=== PATIENT | male | born 1975 | race Caucasian/White ===

== ENCOUNTER 2024-07-06 09:43 | Outpatient (REF) | payer MEDICAID, SELFPAY ==
[2024-07-06 12:05] LABS: Anion Gap 12 (12-20); Blood Urea Nitrogen 14 mg/dL (9-16); Calcium 9.8 mg/dL (8.4-10.2); Carbon Dioxide 26 mmol/L (22-29); Chloride 107 mmol/L (96-108); Estimated Glomerular Filt Rate > 60; Glucose Random 108 mg/dL (60-115); Potassium 4.7 mmol/L (3.3-5.1); Sodium 140 mmol/L (135-145)
== END 2024-07-06 09:44 | disposition home or self-care (01) ==
LOC: HO.HHCL 09:43
PROVIDERS: Visit Provider Internal Medicine Geriatric Medicine
DX: I10 Essential (primary) hypertension (principal)
CPT/HCPCS: 36415; 80048

== ENCOUNTER 2025-06-11 10:15 | Outpatient (REF) | payer MEDICAID, SELFPAY ==
--- OUTSIDE RECORDS SUMMARY | 2025-06-11 11:18 | XMS_ITS | Clinical Summary ---
Author Organization [employer] Address [address] [facility] [address] [place] [address] Care Team Providers Care Stoner Hand Name Role Phone NameCortez MD Primary Care Provider [phone] Allergies No known active allergies Medications lisinopril 10 MG tabletIndications :Essential hypertension TAKE 1 TABLET BY MOUTH EVERY DAY 90 tablet 01/08/2025 Active Blood Pressure kit Use once a day 1 kit 06/07/2025 Active Active Problems Problem Noted Date Diagnosed Date Essential hypertension 02/28/2024 Elevated blood pressure reading 07/07/2018 Encounters Date Type Department Care Team Description 06/07/2025 10:30 AM EDT Office Visit [facility] [address] [place] [phone] Cortez Styles MD PE (physical exam), routine (Primary Dx); Screening for diabetes mellitus; Screening for cholesterol level; Screening for prostate cancer; Family history of thyroid problem; Encounter for screening for malignant neoplasm of colon; Essential hypertension; Tachycardia 06/07/2025 Travel 06/06/2025 Telephone [facility] [address] [place] [phone] Carina Jorge MA CHARTPREP 05/30/2025 Patient Outreach [facility] [address] [place], [place] [phone] Cortez Styles MD Pre-visit Planning (SDOH negative, Tobacco screening negative. ) 04/11/2025 Telephone [facility] [address] [place], [place] [phone] Cortez Styles MD Med Refill 04/08/2025 Refill [facility] [address] [place] [address] Cortez Styles MD Essential hypertension 04/05/2025 Refill [facility] [address] [place] [phone] Name, MD Cortez Essential hypertension from Last 3 Months Immunizations Immunization Administration Dates Next Due Tdap 04/08/2021 Family History Medical History Relation Name Comments No Known Problems Father Hypertension Mother Hypertension Sister Thyroid disease Son Relation Name Status Comments Father Alive Mother Alive Sister Alive Son Alive Social History Tobacco Use Types Packs/Day Years Used Date Smoking Tobacco: Never Smokeless Tobacco: Never Tobacco Cessation:Counseling Given: Not Answered Alcohol Use Standard Drinks/Week Comments Never 0 (1 standard drink = 0.6 oz pur e alcohol) Depression Answer Date Recorded Patient Health Questionnaire-9 Score 0 06/07/2025 Patient Health Questionnaire-9 Score 0 06/07/2025 Last PHQ-9: Questionnaire Data Not on file 0 06/07/2025 Housing Stability Answer Date Recorded What is your housing situation today? I have ange hsu 05/30/[address] you li ve. Do you have problems with any of the following? None of the above 05/30/2025 Food Insecurity Answer Date Recorded Within the past 12 months, y ou worried that your food would run out before you got money to buy more: Never True 05/30/2025 Within the past 12 months,th e food you bought just didn't last and you didn't have enough money to get more: Never True Transportation Answer Date Recorded In the past 12 months, has l ack of transportation kept you from medical appts, meetings, work or from getting things needed for daily living? No 05/30/2025 Utilities Answer Date Recorded In the past 12 months, has t he electric, gas, oil or water company threatened to shut off services in your home? No 05/30/2025 Depression Answer Date Recorded Patient Health Questionnaire-2 Score 0 06/07/2025 Internet Access Answer Date Recorded Internet Access Q1 Yes 05/30/2025 Internet Access Q2 Not on file 05/30/2025 Sex and Gender Information Value Date Recorded Sex Assigned at Male 08/30/2022 10:34 AM EDT Legal Sex Male 10:34 AM EDT Gender Identity Male 08/30/2022 10:34 AM EDT Sexual Orientation Straight 08/30/2022 10 :34 AM EDT Last Filed Vital Signs Vital Sign Reading Time Taken Comments Blood Pressure 150/82 06/07/2025 11:06 AM EDT Pulse 100 06/07/2025 11:06 AM EDT Temperature 36.6 C (97.8 F) 06/07/2025 10:42 AM EDT Respiratory Rate 22 06/07/2025 10:42 AM EDT Oxygen Saturation 99% 06/07/2025 10:42 AM EDT Inhaled Oxygen Concentration - - Weight 75.9 kg (167 lb 6.4 oz) 06/07/2025 10:42 AM EDT Height 170.2 cm (5' 7 ) 06/07/2025 10:42 AM EDT Body Mass Index 26.22 06/07/2025 10:42 AM EDT Plan of Treatment Upcoming Encounters Date Type Department Care Team (Late st Contact Info) Description 06/21/2025 11:30 AM EDT Telemedicine [facility] [address] [place] [phone] Health Maintenance Due Date Last Done Comments CT Colonography 1975 Colonoscopy 1975 Colorectal Cancer Screening 1975 FIT DNA/Cologuard 1975 FIT 1975 FOBT 1975 Sigmoidoscopy 1975 Family Planning (PISQ) 1990 Hepatitis B Vaccines (1 of 3 - 19+ 3-dose series) 1994 COVID-19 Vaccine ( - 2023-2 5 season) 2024 03/31/2021, 03/09/2021 Influenza Vaccine (#1) 2025 Zoster Vaccines (1 of 2) 2025 Lipid Panel 04/13/2026 04/13/2021 SDOH Screening 05/30/2026 05/30/2025 Alcohol/Substance Use Screening 06/07/2026 06/07/2025 Depression Screening 06/07/2026 06/07/2025, 06/07/2025 Disability Screening 06/07/2026 06/07/2025 Tobacco Screening 06/07/2026 06/07/2025 DTaP/Tdap/Td Vaccines (2 - T d or Tdap) 04/08/2031 04/08/2021 RSV Patients and Patients Aged 60 years or older (1 - 1-dose 75+ series) 2050 HIV Screening Completed 04/13/2021 Hepatitis C Screening Completed 04/13/2021 HIB Vaccines Aged Out No longer eligi ble based on patient's age to complete this topic HPV Vaccines Aged Out No longer eligi ble based on patient's age to complete this topic Hepatitis A Vaccines Aged Out No long er eligible based on patient's age to complete this topic IPV Vaccines Aged Out No longer eligi ble based on patient's age to complete this topic Meningococcal B Vaccine Aged Out No l onger eligible based on patient's age to complete this topic Meningococcal Vaccine Aged Out No minh ashley eligible based on patient's age to complete this topic Pneumococcal Vaccine: Pediatrics (0 to 5 Years) and At-Risk Patients (6 to 49) Years Aged Out No longer eligible b ased on patient's age to complete this topic RSV under 20 months Aged Out No longe r eligible based on patient's age to complete this topic Rotavirus Vaccines Aged Out No longer eligible based on patient's age to complete this topic Procedures Procedure Name Priority Date/Time Associated Diagnosis Comments ZZZ HISTORICAL HEPATITIS C AB W/REFL TO HCV RNA, QN, PCR Routine 04/13/2021 10:51 AM EDT HIV 1/2 ANTIGEN/ANTIBODY, FOURTH GENERATION W/RFL Routine 04/13/2021 10:51 AM EDT LIPID PANEL, STANDARD Routine 04/13/2021 10:51 AM EDT from Last 3 Months or Most Recently Relevant to Health Maintenance Results * HEPATITIS C AB W/REFL TO HCV RNA, QN, PCR (04/13/2021 10:51 AM EDT) HEPATITIS C ANTIBODY NON-REACT CINDA NON-REACT CINDA [facility] INDEX 0.02 <1.00 [facility] Comment: HCV antibody was non-reactive. There is no laboratory evidence of HCV infection. In most cases, no further action is required. However, if recent HCV exposure is suspected, a test for HCV RNA (test code 81847) is suggested. For additional information please refer to http://education.[employer]/faq/ZFU91h2 (This link is being provided for informational/ educational purposes only.) 04/13/2021 10:5 1 AM EDT Cortez Styles MD HISTORICAL/NON ORDERABLE LABS Fi nal Result Performing Organization Address [facility] de Phone Number [facility] [address] [place] [address], * HIV 1/2 ANTIGEN/ANTIBODY,FOURTH GENERATION W/RFL (04/13/2021 10:51 AM EDT) Pathologist [facility] HIV-1/2 ANTIGEN AND ANTIBODIES, 4TH GENERATION W/ REFLEX NON-REACT CINDA NON-REACT CINDA [facility] Comment: HIV-1 antigen and HIV-1/HIV-2 antibodies were not detected. There is no laboratory evidence of HIV infection. PLEASE NOTE: This information has been disclosed to you from records whose confidentiality may be protected by state law. If your state requires such protection, then the state law prohibits you from making any further disclosure of the information without the specific written consent of the person to whom it pertains, or as otherwise permitted by law. A general authorization for the release of medical or other information is NOT sufficient for this purpose. For additional information please refer to http://education.[employer]/faq/WJJ447 (This link is being provided for informational/ educational purposes only.) The performance of this assay has not been clinically validated in patients less than 2 years old. 04/13/2021 10:5 1 AM EDT Cortez Styles MD LAB BLOOD ORDERABLES Final Resul t Performing Organization Address [facility] de Phone Number [facility] [address] [place] [address], * (ABNORMAL) LIPID PANEL, STANDARD (04/13/2021 10:51 AM EDT) Pathologist [facility] Chol/HDLC Ratio 4.1 <5.0 (calc) [facility] Cholesterol, Total 158 <200 mg/dL [facility] HDL Cholesterol 39(L) > OR = 40 mg/dL [facility] LDL Cholesterol 103(H) mg/dL (calc) [facility] Comment: Reference range: <100 Desirable range <100 mg/dL for primary prevention; <70 mg/dL for patients with CHD or diabetic patients with > or = 2 CHD risk factors. LDL-C is now calculated using the Nain calculation, which is a validated novel method providing better accuracy than the Friedewald equation in the estimation of LDL-C. Juancarlos MORIN et al. ARIANNE. 2013;310(19): 4849-0502 (http://education.[employer]/faq/IPF536) Non-HDL Cholesterol 119 <130 mg/dL (calc) [facility] Comment: For patients with diabetes plus 1 major ASCVD risk factor, treating to a non-HDL-C goal of <100 mg/dL (LDL-C of <70 mg/dL) is considered a therapeutic option. Triglycerides 75 <150 mg/dL [facility] 04/13/2021 10:5 1 AM EDT us Cortez Styles MD LAB BLOOD ORDERABLES Final Resul t [facility] [address] from Last 3 Months or Most Recently Relevant to Health Maintenance Insurance [facility] C3 Care Teams Stoner Hand Relationship Specialty Start Date End Date Name, MD Cortez [address] [place] [address] PCP - General Family Medicine 07/07/18
[2025-06-11 11:25] LABS: MANUAL DIFF FLAG NO
[2025-06-11 11:30] LABS: Hematocrit 46.3 % (42.0-52.0); Hemoglobin 15.4 g/dl (14.0-18.0); Imm Gran Abs Auto 0.01 X10*3/uL (0.00-0.03); Imm Gran Pct Auto 0.1 % (0.0-0.4); Lymphocytes Absolute Auto 2.7 X10*3/uL (1.2-4.9); Mean Corpuscular HGB Conc 33.3 g/dl (31.0-36.0); Mean Corpuscular Hemoglobin 28.7 pg (27.0-33.0); Mean Corpuscular Volume 86.2 fL (80.0-98.0); NRBC Abs Auto 0.000 X10*3/uL (0.0-0.012); NRBC Pct Auto 0.0 /100WBC (0.0-0.2); Platelet Count 291 X10*3/uL (160-400); Red Blood Count 5.37 X10*6/uL (4.60-5.80); White Blood Count 7.1 X10*3/uL (4.8-10.8)
[2025-06-11 12:50] LABS: Alanine Aminotransferase 19 U/L (0-40); Albumin Level 4.5 g/dL (3.5-5.0); Alkaline Phosphatase 63 U/L (39-117); Anion Gap 14 (12-20); Aspartate Amino Transferase 20 U/L (5-37); Blood Urea Nitrogen 14 mg/dL (9-16); Calcium 9.5 mg/dL (8.4-10.2); Carbon Dioxide 25 mmol/L (22-29); Chloride 109 mmol/L (96-108); Cholesterol 152 mg/dL (<200); Estimated Glomerular Filt Rate > 60; HDL Cholesterol 40 mg/dL (>40); Potassium 4.5 mmol/L (3.3-5.1); Sodium 143 mmol/L (135-145); Total Protein 7.5 g/dL (6.5-8.0); Triglycerides 78 mg/dL (<150)
[2025-06-11 12:54] LABS: Prostate Specific Antigen 0.94 ng/mL (<0.05-4.0)
== END 2025-06-11 10:16 | disposition home or self-care (01) ==
LOC: HO.HHCL 10:15
PROVIDERS: PCP Internal Medicine Geriatric Medicine; Visit Provider Internal Medicine Geriatric Medicine
DX: Z00.00 Encounter for general adult medical examination without abnormal findings (principal); Z13.1 Encounter for screening for diabetes mellitus; Z12.5 Encounter for screening for malignant neoplasm of prostate; Z13.220 Encounter for screening for lipoid disorders; Z83.49 Family history of other endocrine, nutritional and metabolic diseases
CPT/HCPCS: 36415; 80053; 80061; 84153; 84443; 85025